=== PATIENT | female | born 1955 | race Caucasian/White ===

== ENCOUNTER 2017-01-03 05:50 | Emergency (ER) | payer OTHER ==
[2017-01-03] MEDS ORDERED: NS 1,000 ML IV ONE (06:17)
--- NOTE | 2017-01-03 06:23 | EDPHY ---
H & P Time Seen by Provider: 01/03/17 05:58 HPI/ROS: Chief Complaint: Shortness of breath, dizzy, nausea HPI: 61-year-old woman who is 2 days status post left total hip replacement is presenting complaining of an episode of shortness of breath, dizziness and nausea. Patient states that she at 4:10 a.m. she took 20 mg of oxycodone and also took Benadryl because she was having difficulty sleeping. Approximately 1 hour later she started developing some shortness of breath with some lightheadedness and some nausea. She has not have any chest pain. This was not worsened by her walking with her walker. She states she is now feeling better. She is no longer short of breath and has only some mild nausea and lightheadedness. Patient states that she has been taking Coumadin as prescribed by her orthopedic surgeon as DVT prophylaxis. She started this Sunday night before her surgery. She has not noticed any increasing calf pain or swelling. She is wearing Jorgito stockings as well. No palpitations. ROS: 10 point Review of Systems is negative except as noted in the HPI. PMH: Hypothyroidism Medications: Levothyroxine, oxycodone p.r.n., Benadryl p.r.n. Social History: No smoking, no alcohol, no recreational drug use Family History: non-contributory Physical Exam: Gen: Awake, Alert, No Distress HEENT: Nose: no rhinorrhea Eyes: PERRLA, EOMI Mouth: Moist mucosa Neck: Supple, no JVD Chest: nontender, lungs clear to auscultation Heart: S1, S2 normal, no murmur Abd: Soft, non-tender, no guarding Back: no CVA tenderness, no midline tenderness Ext: no edema, non-tender Skin: no rash Neuro: CN II-XII intact, Sensation grossly intact, Strength 5/5 in bilateral upper and lower extremities - Medical/Surgical History Hx Asthma: No Hx Chronic Respiratory Disease: No Hx Diabetes: No Hx Cardiac Disease: No Hx Renal Disease: No Hx Cirrhosis: No Hx Alcoholism: No Other PMH: thyroid. c section - Social History Smoking Status: Never smoked Constitutional: Initial Vital Signs Temperature (C) 36.8 C 01/03/17 06:00 Heart Rate 81 01/03/17 06:00 Respiratory Rate 16 01/03/17 06:00 Blood Pressure 128/64 H 01/03/17 06:00 O2 Sat (%) 96 01/03/17 06:00 O2 Delivery Mode Room Air Allergies/Adverse Reactions: No Known Allergies Allergy (Verified 03/06/16 08:03) Home Medications: Medication Instructions Recorded Levothyroxine 03/06/16 BENADRYL 01/03/17 Colace 100 MG (*) 01/03/17 Coumadin 5MG (*) 01/03/17 Oxycodone HCl 5 mg PO 01/03/17 Medical Decision Making ED Course/Re-evaluation: Patient's symptoms have resolved. INR is 1.71, so borderline therapeutic. I have had an extensive conversation with her patient with the risks and benefits CT scanning in my very low suspicion that she has a PE. She has not have any clinical signs or symptoms to suggest this. She is not tachycardic. She is not hypoxemic. She has not have any calf tenderness or swelling. Symptoms have completely resolved without any intervention. Given the timing of when this started after her medications I think that the likelihood of a blood clot is extremely low. I do not think risk associated with CT scanning is warranted at this time. Patient is in complete agreement and understands the risks associated. She will be discharged instructions return for any worsening of symptoms. - Data Points Laboratory Results: Laboratory Results 01/03/17 06:08 01/03/17 06:08 01/03/17 01/03/17 01/03/17 06:08 06:08 06:08 WBC 7.29 10^3/uL 10^3/uL (3.80-9.50) RBC 3.34 10^6/uL L 10^6/uL (4.18-5.33) Hgb 10.4 g/dL L g/dL (12.6-16.3) Hct 30.8 % L % (38.0-47.0) MCV 92.2 fL fL (81.5-99.8) MCH 31.1 pg pg (27.9-34.1) MCHC 33.8 g/dL g/dL (32.4-36.7) RDW 12.2 % % (11.5-15.2) Plt Count 242 10^3/uL 10^3/uL (150-400) MPV 9.2 fL fL (8.7-11.7) Neut % (Auto) 58.8 % % (39.3-74.2) Lymph % (Auto) 31.0 % % (15.0-45.0) Noble % (Auto) 7.8 % % (4.5-13.0) Eos % (Auto) 1.5 % % (0.6-7.6) Baso % (Auto) 0.5 % % (0.3-1.7) Nucleat RBC Rel Count 0.0 % % (0.0-0.2) Absolute Neuts (auto) 4.28 10^3/uL 10^3/uL (1.70-6.50) Absolute Lymphs (auto) 2.26 10^3/uL 10^3/uL (1.00-3.00) Absolute Monos (auto) 0.57 10^3/uL 10^3/uL (0.30-0.80) Absolute Eos (auto) 0.11 10^3/uL 10^3/uL (0.03-0.40) Absolute Basos (auto) 0.04 10^3/uL 10^3/uL (0.02-0.10) Absolute Nucleated RBC 0.00 10^3/uL 10^3/uL (0-0.01) Immature Gran % 0.4 % % (0.0-1.1) Immature Gran # 0.03 10^3/uL 10^3/uL (0.00-0.10) PT 20.1 SEC H SEC (12.0-15.0) INR 1.71 H (0.83-1.16) APTT 33.4 SEC SEC (23.0-38.0) Sodium 143 mEq/L mEq/L (134-144) Potassium 4.3 mEq/L mEq/L (3.5-5.2) Chloride 108 mEq/L mEq/L (97-110) Carbon Dioxide 27 mEq/l mEq/l (22-31) Anion Gap 8 mEq/L mEq/L (8-16) BUN 10 mg/dL mg/dL (7-23) Creatinine 0.7 mg/dL mg/dL (0.6-1.0) Estimated GFR > 60 Glucose 79 mg/dL mg/dL (70-100) Calcium 8.6 mg/dL mg/dL (8.5-10.4) Medications Given: Discontinued Medications Sodium Chloride (Ns) 1,000 mls @ 0 mls/hr IV ONCE ONE PRN Reason: Wide Open Stop: 01/03/17 06:18 Last Admin: 01/03/17 06:24 Dose: 1,000 mls Departure - Departure Disposition: Home, Routine, Self-Care Clinical Impression: Dyspnea, Medication reaction Condition: Good Instructions: Dyspnea (ED) Additional Instructions: Return to the emergency depart for increasing shortness of breath, chest pain, calf pain or swelling, fevers, chills, headache, or any other concerns. Follow up with your physician as scheduled for outpatient follow-up. Follow up with primary care physician for any concerns in 2-4 days. Referrals: Kaykay Velazquez MD [Primary Care Provider] - As per Instructions
[2017-01-03 06:32] LABS: % IMMATURE GRANULYOCYTES 0.4 % (0.0-1.1); ABSOLUTE IMMATURE GRANULOCYTES 0.03 10^3/uL (0.00-0.10); ADD DIFF? NO; ADD MORPH? NO; ADD SCAN? NO; ATYPICAL LYMPHOCYTE FLAG 0 (0-99); FRAGMENT RBC FLAG 0 (0-99); HEMATOCRIT 30.8 % (38.0-47.0); HEMOGLOBIN 10.4 g/dL (12.6-16.3); LEFT SHIFT FLG 30 (0-99); LIPEMIA HEMOLYSIS FLAG 90 (0-99); MEAN CELL HEMOGLOBIN 31.1 pg (27.9-34.1); MEAN CELL HEMOGLOBIN CONCENTR. 33.8 g/dL (32.4-36.7); MEAN CELL VOLUME 92.2 fL (81.5-99.8); MEAN PLATELET VOLUME 9.2 fL (8.7-11.7); PLATELET CLUMPS FLAG 0 (0-99); PLATELET COUNT 242 10^3/uL (150-400); RED BLOOD CELL COUNT 3.34 10^6/uL (4.18-5.33); RED CELL DISTRIBUTION WIDTH 12.2 % (11.5-15.2)
[2017-01-03 06:36] VITALS: RESP 16; O2SAT 96
[2017-01-03 06:47] LABS: APTT 33.4 SEC (23.0-38.0); INR 1.71 (0.83-1.16); PROTIME(PATIENT) 20.1 SEC (12.0-15.0)
[2017-01-03 06:48] LABS: ANION GAP 8 mEq/L (8-16); CALCIUM 8.6 mg/dL (8.5-10.4); CARBON DIOXIDE 27 mEq/l (22-31); CHLORIDE 108 mEq/L (97-110); CREATININE 0.7 mg/dL (0.6-1.0); GLOMERULAR FILTRATION RATE > 60; GLUCOSE 79 mg/dL (70-100); POTASSIUM 4.3 mEq/L (3.5-5.2); SODIUM 143 mEq/L (134-144)
[2017-01-03 07:05] VITALS: BP 100/56; PULSE 72; TEMP 98.1
== END 2017-01-03 07:04 | disposition home or self-care (01) ==
DX: R06.00 Dyspnea, unspecified (principal); T50.7X5A Adverse effect of analeptics and opioid receptor antagonists, initial encounter; T45.0X5A Adverse effect of antiallergic and antiemetic drugs, initial encounter; R42 Dizziness and giddiness

== ENCOUNTER → 2017-03-28 | Outpatient (CLI) | payer OTHER | LOC: FIMAGING 11:25 | PROVIDERS: ATTEND Family Medicine | DX: Z12.31 Encounter for screening mammogram for malignant neoplasm of breast (principal) | CPT/HCPCS: G0202 ==

== ENCOUNTER 2017-05-06 23:38 | Emergency (ER) | payer OTHER ==
[2017-05-07] VITALS: BP 113/58; PULSE 67; RESP 16; TEMP 98.2; O2SAT 97
--- NOTE | 2017-05-07 00:20 | EDPHY ---
H & P Stated Complaint: bump on L knee Time Seen by Provider: 05/07/17 00:00 HPI/ROS: HPI The patient presents with a bump that she felt on her left knee just prior to arrival in the emergency department. It is nonpainful and feels small and mobile to her. She had a hip replacement several months ago, she is no longer on anticoagulation. She was concerned that she could have a blood clot. She does not have any leg swelling or pain. She has no overlying skin changes. She has no prior history of similar. Since her operation she has had some varicose veins of her leg. REVIEW OF SYSTEMS Constitutional: No fever, no chills. Skin: No rashes. Neurological: No headache. PMHx: Recent total hip arthroplasty Soc Hx: Active, likes to dance PHYSICAL General Appearance: Alert, no distress Eyes: Pupils equal and round no pallor or injection ENT, Mouth: Mucous membranes moist Respiratory: Breathing comfortably Neurological: A&O, moves all extremities Skin: Warm and dry, no rashes Extremities: Left knee with overlying varicose veins, there is a firm 5 mm nodular structure within 1 of the varicosities which is mobile and nontender, there is no overlying skin change Psychiatric: Patient is oriented X 3, there is no agitation Source: Patient Exam Limitations: No limitations - Personal History Current Tetanus/Diphtheria Vaccine: Yes Current Tetanus Diphtheria and Acellular Pertussis (TDAP): Yes - Medical/Surgical History Hx Asthma: No Hx Chronic Respiratory Disease: No Hx Diabetes: No Hx Cardiac Disease: No Hx Renal Disease: No Hx Cirrhosis: No Hx Alcoholism: No Other PMH: thyroid. c section - Social History Smoking Status: Never smoked Constitutional: Initial Vital Signs Temperature (C) 36.8 C 05/06/17 23:40 Heart Rate 67 05/06/17 23:40 Respiratory Rate 16 05/06/17 23:40 Blood Pressure 113/58 L 05/06/17 23:40 O2 Sat (%) 97 05/06/17 23:40 O2 Delivery Mode Room Air Allergies/Adverse Reactions: No Known Allergies Allergy (Verified 03/06/16 08:03) Home Medications: Medication Instructions Recorded Levothyroxine 03/06/16 BENADRYL 01/03/17 Colace 100 MG (*) 01/03/17 Coumadin 5MG (*) 01/03/17 Oxycodone HCl 5 mg PO 01/03/17 Medical Decision Making Differential Diagnosis: 61-year-old healthy female status post left total hip arthroplasty several months ago presents with a bump on her left knee. On exam, this appears to be superficial thrombophlebitis. She does not have any asymmetric leg swelling or pain making DVT unlikely. There is no erythema or edema making cellulitis unlikely. I have instructed her to use warm compresses and follow up with her regular doctor as needed. Departure - Departure Disposition: Home, Routine, Self-Care Clinical Impression: Superficial thrombophlebitis of leg Qualifiers: Laterality: left Qualified Code(s): I80.02 - Phlebitis and thrombophlebitis of superficial vessels of left lower extremity Condition: Good Instructions: Superficial Thrombophlebitis (ED) Additional Instructions: Please follow-up with your primary care doctor or orthopedist if this becomes worse in any way. Otherwise you should use warm compresses if your having pain. Referrals: Kaykay Velazquez MD [Primary Care Provider] - As per Instructions
== END 2017-05-07 00:28 | disposition home or self-care (01) ==
DX: I80.02 Phlebitis and thrombophlebitis of superficial vessels of left lower extremity (principal); Z79.01 Long term (current) use of anticoagulants

== ENCOUNTER → 2017-06-08 | Outpatient (CLI) | payer OTHER | LOC: BMCIMAGING 13:43 | PROVIDERS: ATTEND Internal Medicine Rheumatology | DX: Z13.820 Encounter for screening for osteoporosis (principal); M85.80 Other specified disorders of bone density and structure, unspecified site ==

== ENCOUNTER → 2018-08-08 | Outpatient (CLI) | payer OTHER | LOC: GIMAGING 13:37 | PROVIDERS: ATTEND Family Medicine | DX: M25.521 Pain in right elbow (principal); M79.89 Other specified soft tissue disorders | CPT/HCPCS: 73070-PO ==